=== PATIENT | female | born 1985 | race Asian ===

== ENCOUNTER 2017-12-18 14:02 | Outpatient (CLI) | payer OTHER ==
--- NOTE | 2017-12-18 16:34 | Ultrasound Report ---
PELVIC ULTRASOUND: 12/18/2017 HISTORY: Chronic pelvic pain. TECHNIQUE: Real-time scanning by the wic site coordinator with saved static images are reviewed. Transabdominal approach for global evaluation. Endovaginal scanning for detailed assessment of the endometrium and ovaries. LMP 12/11/2017 FINDINGS: Uterus 8.6 x 4.1 x 6.1 cm, normal echotexture, anteverted configuration, volume 115 mL Endometrial echo thickness 1 mm. Cervical length 2.7 cm. Right ovary: 2.4 x 1.3 x 2.7 cm, volume 4.3 mL, normal echotexture and blood flow. Left ovary: 2.3 x 1.5 x 2.3 cm, volume 4.1 mL, normal echotexture and blood flow. Free fluid: None. IMPRESSION: NORMAL PELVIC ULTRASOUND. TD: 12/18/2017 16:32
== END 2017-12-18 14:03 | disposition home or self-care (01) ==
LOC: DI 14:02
PROVIDERS: ATTEND Nurse Practitioner
DX: R53.83 Other fatigue (principal); R10.2 Pelvic and perineal pain; R10.9 Unspecified abdominal pain; R14.0 Abdominal distension (gaseous); N92.0 Excessive and frequent menstruation with regular cycle
CPT/HCPCS: 76830; 76856

== ENCOUNTER 2017-12-20 08:00 | Outpatient (CLI) | payer OTHER ==
[2017-12-20 18:56] LABS: BASOPHILS # (AUTO) 0.1 10^3/uL (0.0-0.1); EOSINOPHILS # (AUTO) 0.2 10^3/uL (0.0-0.7); EOSINOPHILS % (AUTO) 3.8 %; HGB - HEMOGLOBIN 10.1 g/dL (12.0-16.0); LYMPHOCYTES # (AUTO) 1.8 10^3/uL (1.5-3.5); LYMPHOCYTES % (AUTO) 34.5 %; MEAN CORPUSCULAR HEMOGLOBIN 23.9 pg (27.0-31.0); MEAN CORPUSCULAR HGB CONC 31.4 g/dL (32.0-36.0); MEAN CORPUSCULAR VOLUME 76.1 fL (81.0-99.0); MONOCYTES # (AUTO) 0.4 10^3/uL (0.0-1.0); MONOCYTES % (AUTO) 8.2 %; NEUTROPHILS # (AUTO) 2.7 10^3/uL (1.5-6.6); NEUTROPHILS % (AUTO) 52.5 %; PLT - PLATELET COUNT 478 10^3/uL (130-450); RED BLOOD COUNT 4.23 10^6/uL (4.20-5.40); RED CELL DISTRIBUTION WIDTH 14.9 % (12.0-15.0); WHITE BLOOD COUNT 5.1 x10^3/uL (4.8-10.8)
[2017-12-20 19:03] LABS: BILIRUBIN,URINE NEGATIVE (NEGATIVE); GLUCOSE, URINE (UA) NEGATIVE (NEGATIVE); KETONES,URINE (UA) NEGATIVE (NEGATIVE); LEUKOCYTE ESTERASE, URINE NEGATIVE (NEGATIVE); NITRITE,URINE NEGATIVE (NEGATIVE); OCCULT BLOOD,URINE NEGATIVE (NEGATIVE); PROTEIN,URINE NEGATIVE (NEGATIVE); UROBILINOGEN,URINE 0.2 (NORMAL) E.U./dL (NORMAL)
[2017-12-20 19:08] LABS: CLARITY,URINE CLOUDY (CLEAR)
[2017-12-20 19:18] LABS: ALBUMIN 4.1 g/dL (3.2-5.5); ALBUMIN/GLOBULIN RATIO 1.2 (1.0-2.2); BILIRUBIN,TOTAL 0.4 mg/dL (0.2-1.0); CALCIUM 8.7 mg/dL (8.5-10.3); CREATININE 0.6 mg/dL (0.4-1.0); TOTAL PROTEIN 7.4 g/dL (6.7-8.2)
[2017-12-20 19:28] LABS: RBC,URINE 0-5 /HPF (0-5); SQUAMOUS EPITHELIAL CELL,UR RARE Squamous (<= Few)
[2017-12-20 19:30] LABS: AMORPHOUS SEDIMENT,UR Moderate /LPF; BACTERIA,URINE Moderate /HPF (None Seen)
[2017-12-20 19:32] LABS: THYROID STIMULATING HORMONE 0.96 uIU/mL (0.34-5.60)
[2017-12-20 19:43] LABS: FOLATE 16.64 ng/mL (5.90 - >24.8)
== END 2017-12-20 08:01 | disposition home or self-care (01) ==
LOC: LAB.N 08:00
PROVIDERS: ATTEND Nurse Practitioner
DX: R53.83 Other fatigue (principal); R30.0 Dysuria
CPT/HCPCS: 36415; 80050; 81001; 82306; 82607; 82746; 87086

== ENCOUNTER 2017-12-23 09:41 | Outpatient (CLI) | payer OTHER ==
[2017-12-23 13:17] LABS: MEAN RETIC VALUE 95.5; RED BLOOD COUNT 4.33 10^6/uL (4.20-5.40)
[2017-12-23 13:29] LABS: % IRON SATURATION 4 % (20-50); IRON 20 ug/dL (28-170); TOTAL IRON BINDING CAPACITY 496 ug/dL (250-450); TRANSFERRIN 354 mg/dL (192-382)
== END 2017-12-23 09:42 | disposition home or self-care (01) ==
LOC: LAB.N 09:41
PROVIDERS: ATTEND Nurse Practitioner
DX: D50.9 Iron deficiency anemia, unspecified (principal)
CPT/HCPCS: 36415; 81599; 82728; 83021; 83540; 84466; 85014; 85018; 85044

== ENCOUNTER 2018-08-11 16:44 | Outpatient (CLI) | payer OTHER ==
--- NOTE | 2018-08-12 10:51 | Ultrasound Report ---
Reason: MENORRHAGIA,ABDOMINAL PAIN,CHRONIC Procedure Date: 08/11/2018 Accession Number: [id number] / [id number] Procedure: US - Pelvic w/Transvaginal CPT Code: FULL RESULT: EXAM: PELVIC ULTRASOUND EXAM DATE: 08/11/2018 04:03 PM. CLINICAL HISTORY: Menorrhagia, abdominal pain, chronic. COMPARISON: PELVIC W/TRANSVAGINAL 12/18/2017 2:05 PM. TECHNIQUE: Realtime transabdominal pelvic scan performed to identify the uterus and adnexa and as an overview of other pelvic structures, followed by transvaginal scan to provide greater detail of the uterus and adnexa, with static image documentation. FINDINGS: Uterus: 9.3 x 4.6 x 6.4 cm, volume 143 cc. Anteverted position. Normal overall size and echotexture. Masses: None. Endometrium: 14 mm. Portions of the posterior endometrium in the uterine body are somewhat indistinct from the myometrium. This is nonspecific but can be seen with adenomyosis. Cervix: Unremarkable. Right Ovary: 2.0 x 1.8 x 2.4 cm, volume 4.5 cc. Normal echotexture and blood flow. Left Ovary: 2.5 x 1.5 x 1.8 cm, volume 3.4 cc. Normal echotexture and blood flow. Free Fluid: None. Other: None. IMPRESSION: Question adenomyosis. If further characterization by imaging is desired, MRI represents the gold standard for imaging diagnosis. [facility]
== END 2018-08-11 16:45 | disposition home or self-care (01) ==
LOC: DI 16:44
PROVIDERS: ATTEND Nurse Practitioner
DX: N92.0 Excessive and frequent menstruation with regular cycle (principal)
CPT/HCPCS: 76830; 76856

== ENCOUNTER 2018-08-15 18:33 | Outpatient (CLI) | payer OTHER ==
--- NOTE | 2018-08-16 18:46 | Ultrasound Report ---
Reason: MENORRHAGIA,ABDOMINAL PAIN,CHRONIC Procedure Date: 08/15/2018 Accession Number: [id number] / [id number] Procedure: US - Abdomen Complete CPT Code: FULL RESULT: EXAM: ABDOMEN ULTRASOUND EXAM DATE: 08/15/2018 07:23 PM. CLINICAL HISTORY: MENORRHAGIA,ABDOMINAL PAIN,CHRONIC. COMPARISON: None. TECHNIQUE: Real-time scanning was performed with static images obtained. FINDINGS: Liver: Diffusely increased echogenicity. 13.9 cm. Main portal vein flow: Hepatopetal. Gallbladder: No stones, wall thickening, or sonographic Clifford's sign. Biliary System: Common bile duct measures 4 mm. No intrahepatic ductal dilatation. Pancreas: The visualized portions unremarkable. Kidneys: Right: 10.8 cm longitudinally. No contour-deforming mass, shadowing stones, or hydronephrosis. Left: 11.5 cm longitudinally. No contour-deforming mass, shadowing stones, or hydronephrosis. Spleen: 7.9 cm Aorta and Inferior Vena Cava: Aorta is non-aneurysmal and patent. Included IVC is patent. IMPRESSION: No acute sonographic abnormalities. Diffuse hepatic steatosis. [facility]
== END 2018-08-15 18:34 | disposition home or self-care (01) ==
LOC: DI 18:33
PROVIDERS: ATTEND Nurse Practitioner
DX: R10.9 Unspecified abdominal pain (principal); G89.29 Other chronic pain; K76.0 Fatty (change of) liver, not elsewhere classified
CPT/HCPCS: 76700

== ENCOUNTER 2018-08-22 07:48 | Outpatient (CLI) | payer OTHER | END 2018-08-22 07:49 | disposition home or self-care (01) | LOC: DI 07:48 | PROVIDERS: ATTEND Nurse Practitioner | DX: Z53.9 Procedure and treatment not carried out, unspecified reason (principal) ==